=== PATIENT | male | born 1995 | race Caucasian/White ===

== ENCOUNTER → 2016-09-09 | Outpatient (CLI) | payer OTHER ==
[~2016-09-09] VITALS: Ht 182.9 cm; Wt 75.7 kg
[~2016-09-09] MED LIST: LIDOCAINE 2% INJ 100 MG/5 ML SDV (FOR ANES.) As Ordered ONE; NS 1,000 ML IV SCH; PROPOFOL 200 MG/20 ML VIAL As Ordered ONE
--- NOTE | 2016-09-09 07:44 | ROOR ---
Patient Name: Juan Anderson Procedure Date: 09/09/2016 7:26 AM Date of : 1995 Age: 20 Room: [facility] Gender: Male Note Status: Finalized Procedure: Upper GI endoscopy + Biopsies Indications: Functional Dyspepsia, Indigestion, Heartburn, Abdominal bloating Providers: Vincent Selby MD Referring MD: TERI GENAO MD Requesting Provider: Medicines: Monitored Anesthesia Care Complications: No immediate complications. Procedure: Pre-Anesthesia Assessment: - The heart rate, respiratory rate, oxygen saturations, blood pressure, adequacy of pulmonary ventilation, and response to care were monitored throughout the procedure. The Endoscope was introduced through the mouth, and advanced to the second part of duodenum. The upper GI endoscopy was accomplished without difficulty. The patient tolerated the procedure well. Findings: The Z-line was regular and was found 40 cm from the incisors. Mucosal changes including longitudinal furrows were found in the entire esophagus. Biopsies were taken with a cold forceps for histology. No other significant abnormalities were identified in a careful examination of the stomach. Biopsies were taken with a cold forceps in the gastric antrum for Helicobacter pylori testing. The exam of the duodenum was otherwise normal. Impression: - Z-line regular, 40 cm from the incisors. - Esophageal mucosal changes suggestive of eosinophilic esophagitis. Biopsied. - Biopsies were taken with a cold forceps for Helicobacter pylori testing. - The examination was otherwise normal. Recommendation: - Patient has a contact number available for emergencies. The signs and symptoms of potential delayed complications were discussed with the patient. Return to normal activities tomorrow. Written discharge instructions were provided to the patient. - High fiber diet. - Discharge patient to home. - Continue present medications. - Await pathology results. - Telephone GI clinic for pathology results in 1 week. - Return to referring physician. - The findings and recommendations were discussed with the patient's family. Vincent Selby MD Vincent Selby MD 09/09/2016 7:43:42 AM This report has been signed electronically. Number of Addenda: 0 Note Initiated On: 09/09/2016 7:26 AM Estimated Blood Loss: Estimated blood loss: none.
[2016-09-09 08:05] VITALS: BP 122/68
== END ==
LOC: M OPP 06:49
PROVIDERS: ATTEND Internal Medicine Gastroenterology
DX: K30 Functional dyspepsia (principal); R14.0 Abdominal distension (gaseous); K29.70 Gastritis, unspecified, without bleeding; K21.9 Gastro-esophageal reflux disease without esophagitis; Z88.0 Allergy status to penicillin

== ENCOUNTER 2016-09-17 18:43 | Emergency (ER) | payer OTHER ==
[2016-09-17] MEDS ORDERED: LIDOCAINE 2% MDV 20 ML VIAL As Ordered ONE (19:47)
[2016-09-17] MEDS ORDERED: CLINDAMYCIN 150 MG CAP As Ordered ONE (20:40)
--- NOTE | 2016-09-17 20:48 | EDDOCDS ---
Nurse's Notes [facility] Name: Juan Anderson Age: 20 yrs Sex: Male : 1995 Arrival Date: 09/17/2016 Time: 18:43 Bed PD Private MD: WISabine VAZQUEZ Diagnosis: Laceration without foreign body of left hand Presentation: 09/17 18:49 Presenting complaint: Patient states: cut hand while leather crafting just prior to [facility] arrival. Adult Sepsis Screening: The patient does not have new or worsening altered mentation. Patient's respiratory rate is less than 22. Systolic blood pressure is greater than 100. Patient has a qSOFA score of 0- Negative Sepsis Screen. Suicide/Homicide risk assessment- the patient denies having any suicidal and/or homicidal ideations and does not present with any other emotional, behavioral or mental health complaints. Status: The patient is an active duty hvac/r service technician. Transition of care: patient was not received from another setting of care. 18:49 Acuity: GIDEON Level 4 [facility] 18:49 Method Of Arrival: Walkin/Carried/Asstd [facility] Triage Assessment: 18:52 General: Appears in no apparent distress, comfortable, Behavior is appropriate for age, [facility] cooperative. Pain: Location: left hand Pain currently is 4 out of 10 on a pain scale. HIV screening NA for this visit active duty . Respiratory: Airway is patent Respiratory effort is even, unlabored, Respiratory pattern is regular, symmetrical. Derm: Skin is pink, warm & dry. Injury Description: Laceration sustained to left hand is clean, 0.5 to 2.5 cm long, not bleeding. Historical: - Allergies: PENICILLINS; - Home Meds: 1. dicyclomine 10 mg Oral cap 1 cap 3 times per day - PMHx: gastritis; - PSHx: hydrocelectomy; - Immunization history:: Last tetanus immunization: unknown. - Family history: Not pertinent. - Social history: Smoking status: Patient states was never smoker of tobacco. No barriers to communication noted. - : The pt / caregiver states he / she is not on anticoagulants. Home medication list is obtained from the patient. - Exposure Risk Screening:: None identified. Screenin:19 Screening information is obtained from the patient. Fall risk: No risks identified. [facility] Assistance ADL's: requires no assistance with activities of daily living. Abuse/DV Screen: The patient / caregiver reports he/she is: not in a situation that causes fear, pain or injury. Nutritional screening: No deficits noted. Advance Directives: There is no active DNR order. home support is adequate. Assessment: 20:19 General: Appears in no apparent distress, comfortable, Behavior is appropriate for age, cjh cooperative. Pain: Denies pain. Respiratory: Airway is patent Respiratory effort is even, unlabored, Respiratory pattern is regular, symmetrical. Derm: No deficits noted. DSD in tact over left hand where stitches have been placed, bacitracin applied per instructions, no redness, swelling, drainage, or tenderness noted, patient denies further needs. 20:44 General: reviewed discharge instructions with patient who denies further needs and [facility] declines offer of additional assistance. Vital Signs: 18:44 BP 147 / 66; Pulse 72; Resp 16; Temp 98.0(O); Pulse Ox 100% ; Weight 77.11 kg (R); lr2 Height 6 ft. 0 in. (182.88 cm) (R); Pain 3/10; 20:44 BP 130 / 70; Pulse 68; Resp 16; Temp 98.6; Pulse Ox 100% ; Pain 0/10; cjh 18:44 Body Mass Index 23.06 (77.11 kg, 182.88 cm) lr2 ED Course: 18:44 Patient visited by Yusra Mock. lr2 18:44 Patient moved to Waiting lr2 18:45 [facility], Sabine Spencer is Private Physician. lr2 18:45 Patient moved to Pre RCE lr2 18:49 Triage Initiated cj 19:26 [facility] ef[facility] 19:26 Dawood Chavarria MD is Attending Physician. ef1 19:26 Patient visited by Shani Pereira PA-C. ef1 19:26 Patient moved to Triage 1 rs6 19:26 Patient moved to Pre RCE rs6 19:27 Patient moved to PD2 / 27 ef1 20:07 Patient visited by Shani Pereira PA-C. ef1 20:19 The patient / caregiver is instructed regarding the plan of care and ED course. cj 20:19 No IV's were initiated during this patient's visit. No procedures done that require [facility] assistance. 20:25 [facility] Payment Agreement was scanned into [employer] and attached to record. ks16 20:35 Patient visited by Shani Pereira PA-C. ef1 20:38 [facility], Sabine Spencer is Referral Physician. ef1 Administered Medications: 20:19 Drug: Bacitracin Ointment 500 unit/g 1 applic Route: Topical; Site: affected area; [facility] 20:22 Drug: Lidocaine 10 ml [lidocaine 20 mg/mL (2 %) injection solution (10 mL)] {Note: [facility] medication obtained for provider to administer.} Route: Infiltration; 20:44 Drug: Clindamycin 300 mg [clindamycin 150 mg capsule (2 caps)] Route: PO; [facility] 20:44 Follow up: Response: Pt left department before re-evaluation is appropriate [facility] Order Results: There are currently no results for this order. Outcome: 20:19 No special radiology studies were completed. [facility] 20:38 Discharge ordered by Provider. [facility] 20:44 Discharge Assessment: Patient awake, alert and oriented x 3. No cognitive and/or [facility] functional deficits noted. Patient verbalized understanding of disposition instructions. patient administered narcotics - no. The following High Risk Discharge criteria are identified: None. Discharged to home ambulatory. Condition: good Condition: stable Condition: improved. Discharge instructions given to patient, Instructed on discharge instructions, follow up and referral plans. medication usage, wound care. Property :Personal belongings accompany Pt. 20:46 Patient left the ED. [facility] Signatures: Shani Pereira PA-C PA-C ef1 Morenita Castellano RN RN [facility] Andressa Hicks, NATURAL HISTORY COLLECTIONS CURATOR NATURAL HISTORY COLLECTIONS CURATOR rs6 Dorita Richards, Reg Reg ks16 Yusra Mock2 MTDD
--- NOTE | 2016-09-17 20:48 | EDDOCDS ---
Physician Documentation [facility] Name: Juan Anderson Age: 20 yrs Sex: Male : 1995 Arrival Date: 09/17/2016 Time: 18:43 Bed PD Private MD: COSabine VAZQUEZ Disposition: 09/17/16 20:38 Discharged to Home/Self Care. Impression: Laceration without foreign body of left hand. - Condition is Stable. - Discharge Instructions: Laceration Care, Adult, [id number]-Wept. - Prescriptions for Clindamycin HCl 300 mg Oral Capsule - take 1 capsule by ORAL route every 6 hours; 40 capsule. Ibuprofen 800 mg Oral Tablet - take 1 tablet by ORAL route every 8 hours As needed take with food; 30 tablet. - Medication Reconciliation, Local Pharmacy Hours form. - Follow up: Sabine Spencer [facility]; When: 1 - 2 days; Reason: Recheck today's complaints, Continuance of care. Follow up: Emergency Department; Reason: Worsening of conditions. - Problem is new. - Symptoms have improved. Historical: - Allergies: PENICILLINS; - Home Meds: 1. dicyclomine 10 mg Oral cap 1 cap 3 times per day - PMHx: gastritis; - PSHx: hydrocelectomy; - Immunization history:: Last tetanus immunization: unknown. - Family history: Not pertinent. - Social history: Smoking status: Patient states was never smoker of tobacco. No barriers to communication noted. - : The pt / caregiver states he / she is not on anticoagulants. Home medication list is obtained from the patient. - Exposure Risk Screening:: None identified. Vital Signs: 09/17 18:44 BP 147 / 66; Pulse 72; Resp 16; Temp 98.0(O); Pulse Ox 100% ; Weight 77.11 kg / 170 lbs lr2 (R); Height 6 ft. 0 in. (182.88 cm) (R); Pain 3/10; 20:44 BP 130 / 70; Pulse 68; Resp 16; Temp 98.6; Pulse Ox 100% ; Pain 0/10; cjh 18:44 Body Mass Index 23.06 (77.11 kg, 182.88 cm) lr2 Procedures: 20:09 Wound care to laceration located on left hand was cleaned with Hibiclens, irrigated ef1 with normal saline, Patient tolerated well. 20:09 Laceration repair:. ef1 Laceration: 20:09 Wound Repair of 1cm ( 0.4in ) full thickness laceration to left hand. Distal ef1 neuro/vascular/tendon intact. Anesthesia: Local anesthetic administered with 6 mls of 2% lidocaine. Wound prep: Wound irrigation with saline by provider. Skin closed with 5 x 5-0 Nylon using Simple interrupted sutures. Dressed with Bacitracin, 4x4's. Patient tolerated well. MDM: 19:33 Lidocaine 20 mg/mL (2 %) 10 ml Infiltration once; to bedside ordered. ef1 19:33 Wound Care ordered. ef1 20:11 Bacitracin Ointment 500 unit/g 1 applic Topical in affected area once ordered. ef1 20:11 Dressing ordered. ef1 20:24 Financial registration complete. ks16 20:25 [facility] Payment Agreement was scanned into [employer] and attached to record. ks16 20:39 Clindamycin 300 mg PO once ordered. ef1 Administered Medications: 20:19 Drug: Bacitracin Ointment 500 unit/g 1 applic Route: Topical; Site: affected area; [facility] 20:22 Drug: Lidocaine 10 ml [lidocaine 20 mg/mL (2 %) injection solution (10 mL)] {Note: [facility] medication obtained for provider to administer.} Route: Infiltration; 20:44 Drug: Clindamycin 300 mg [clindamycin 150 mg capsule (2 caps)] Route: PO; [facility] 20:44 Follow up: Response: Pt left department before re-evaluation is appropriate [facility] Signatures: Shani Pereira PA-C PA-C ef1 Morenita Castellano RN RN [facility] Dorita Richards, Reg Reg ks16 The chart was reviewed and I authenticate all verbal orders and agree with the evaluation and treatment provided.Attachments: 20:25 [facility] Payment Agreement ks16 MTDD
--- NOTE | 2016-09-19 21:48 | EDDOCDS ---
Physician Documentation [facility] Name: Juan Anderson Age: 20 yrs Sex: Male : 1995 Arrival Date: 09/17/2016 Time: 18:43 Bed PD Private MD: SDSabine VAZQUEZ Disposition: 09/17/16 20:38 Discharged to Home/Self Care. Impression: Laceration without foreign body of left hand. - Condition is Stable. - Discharge Instructions: Laceration Care, Adult, Yaaw-wz-Bcud. - Prescriptions for Clindamycin HCl 300 mg Oral Capsule - take 1 capsule by ORAL route every 6 hours; 40 capsule. Ibuprofen 800 mg Oral Tablet - take 1 tablet by ORAL route every 8 hours As needed take with food; 30 tablet. - Medication Reconciliation, Local Pharmacy Hours form. - Follow up: Sabine Spencer [facility]; When: 1 - 2 days; Reason: Recheck today's complaints, Continuance of care. Follow up: Emergency Department; Reason: Worsening of conditions. - Problem is new. - Symptoms have improved. Historical: - Allergies: PENICILLINS; - Home Meds: 1. dicyclomine 10 mg Oral cap 1 cap 3 times per day - PMHx: gastritis; - PSHx: hydrocelectomy; - Immunization history:: Last tetanus immunization: unknown. - Family history: Not pertinent. - Social history: Smoking status: Patient states was never smoker of tobacco. No barriers to communication noted. - : The pt / caregiver states he / she is not on anticoagulants. Home medication list is obtained from the patient. - Exposure Risk Screening:: None identified. Vital Signs: 09/17 18:44 BP 147 / 66; Pulse 72; Resp 16; Temp 98.0(O); Pulse Ox 100% ; Weight 77.11 kg / 170 lbs lr2 (R); Height 6 ft. 0 in. (182.88 cm) (R); Pain 3/10; 20:44 BP 130 / 70; Pulse 68; Resp 16; Temp 98.6; Pulse Ox 100% ; Pain 0/10; cjh 18:44 Body Mass Index 23.06 (77.11 kg, 182.88 cm) lr2 Procedures: 20:09 Wound care to laceration located on left hand was cleaned with Hibiclens, irrigated ef1 with normal saline, Patient tolerated well. 20:09 Laceration repair:. ef1 Laceration: 20:09 Wound Repair of 1cm ( 0.4in ) full thickness laceration to left hand. Distal ef1 neuro/vascular/tendon intact. Anesthesia: Local anesthetic administered with 6 mls of 2% lidocaine. Wound prep: Wound irrigation with saline by provider. Skin closed with 5 x 5-0 Nylon using Simple interrupted sutures. Dressed with Bacitracin, 4x4's. Patient tolerated well. MDM: 19:33 Lidocaine 20 mg/mL (2 %) 10 ml Infiltration once; to bedside ordered. ef1 19:33 Wound Care ordered. ef1 20:11 Bacitracin Ointment 500 unit/g 1 applic Topical in affected area once ordered. ef1 20:11 Dressing ordered. 1 20:24 Financial registration complete. [facility] : [facility] Payment Agreement was scanned into [employer] and attached to record. [facility] 20:39 Clindamycin 300 mg PO once ordered. [facility] 09/18 17:53 T-Sheet-- Draft Copy was scanned into [employer] and attached to record. klr Administered Medications: 09/17 20:19 Drug: Bacitracin Ointment 500 unit/g 1 applic Route: Topical; Site: affected area; [facility] 20:22 Drug: Lidocaine 10 ml [lidocaine 20 mg/mL (2 %) injection solution (10 mL)] {Note: [facility] medication obtained for provider to administer.} Route: Infiltration; 20:44 Drug: Clindamycin 300 mg [clindamycin 150 mg capsule (2 caps)] Route: PO; [facility] 20:44 Follow up: Response: Pt left department before re-evaluation is appropriate [facility] Signatures: Shani Pereira, PAZechariahC PAZechariahC ef1 Morenita Castellano RN RN [facility] Dorita Richards, Reg Reg ks16 Leonila Arellano klr The chart was reviewed and I authenticate all verbal orders and agree with the evaluation and treatment provided.Attachments: 20:25 [facility] Payment Agreement [facility] 09/18 17:53 T-Sheet-- Draft Copy klr Chart Complete MTDD
--- NOTE | 2016-09-19 21:48 | EDDOCDS ---
Nurse's Notes [facility] Name: Juan Anderson Age: 20 yrs Sex: Male : 1995 Arrival Date: 09/17/2016 Time: 18:43 Bed PD Private MD: ORSabine VAZQUEZ Diagnosis: Laceration without foreign body of left hand Presentation: 09/17 18:49 Presenting complaint: Patient states: cut hand while leather crafting just prior to [facility] arrival. Adult Sepsis Screening: The patient does not have new or worsening altered mentation. Patient's respiratory rate is less than 22. Systolic blood pressure is greater than 100. Patient has a qSOFA score of 0- Negative Sepsis Screen. Suicide/Homicide risk assessment- the patient denies having any suicidal and/or homicidal ideations and does not present with any other emotional, behavioral or mental health complaints. Status: The patient is an active duty dietary services director. Transition of care: patient was not received from another setting of care. 18:49 Acuity: GIDEON Level 4 [facility] 18:49 Method Of Arrival: Walkin/Carried/Asstd [facility] Triage Assessment: 18:52 General: Appears in no apparent distress, comfortable, Behavior is appropriate for age, [facility] cooperative. Pain: Location: left hand Pain currently is 4 out of 10 on a pain scale. HIV screening NA for this visit active duty . Respiratory: Airway is patent Respiratory effort is even, unlabored, Respiratory pattern is regular, symmetrical. Derm: Skin is pink, warm & dry. Injury Description: Laceration sustained to left hand is clean, 0.5 to 2.5 cm long, not bleeding. Historical: - Allergies: PENICILLINS; - Home Meds: 1. dicyclomine 10 mg Oral cap 1 cap 3 times per day - PMHx: gastritis; - PSHx: hydrocelectomy; - Immunization history:: Last tetanus immunization: unknown. - Family history: Not pertinent. - Social history: Smoking status: Patient states was never smoker of tobacco. No barriers to communication noted. - : The pt / caregiver states he / she is not on anticoagulants. Home medication list is obtained from the patient. - Exposure Risk Screening:: None identified. Screenin:19 Screening information is obtained from the patient. Fall risk: No risks identified. [facility] Assistance ADL's: requires no assistance with activities of daily living. Abuse/DV Screen: The patient / caregiver reports he/she is: not in a situation that causes fear, pain or injury. Nutritional screening: No deficits noted. Advance Directives: There is no active DNR order. home support is adequate. Assessment: 20:19 General: Appears in no apparent distress, comfortable, Behavior is appropriate for age, cjh cooperative. Pain: Denies pain. Respiratory: Airway is patent Respiratory effort is even, unlabored, Respiratory pattern is regular, symmetrical. Derm: No deficits noted. DSD in tact over left hand where stitches have been placed, bacitracin applied per instructions, no redness, swelling, drainage, or tenderness noted, patient denies further needs. 20:44 General: reviewed discharge instructions with patient who denies further needs and [facility] declines offer of additional assistance. Vital Signs: 18:44 BP 147 / 66; Pulse 72; Resp 16; Temp 98.0(O); Pulse Ox 100% ; Weight 77.11 kg (R); lr2 Height 6 ft. 0 in. (182.88 cm) (R); Pain 3/10; 20:44 BP 130 / 70; Pulse 68; Resp 16; Temp 98.6; Pulse Ox 100% ; Pain 0/10; cjh 18:44 Body Mass Index 23.06 (77.11 kg, 182.88 cm) lr2 ED Course: 18:44 Patient visited by Yusra Mock. lr2 18:44 Patient moved to Waiting lr2 18:45 [facility], Sabine Spencer is Private Physician. lr2 18:45 Patient moved to Pre RCE lr2 18:49 Triage Initiated cj 19:26 [facility] Pe[facility] ef1 19:26 Dawood Chavarria MD is Attending Physician. ef1 19:26 Patient visited by Shani Pereira PA-C. ef1 19:26 Patient moved to Triage 1 rs6 19:26 Patient moved to Pre RCE rs6 19:27 Patient moved to PD2 / 27 ef1 20:07 Patient visited by Shani Pereira PA-C. ef1 20:19 The patient / caregiver is instructed regarding the plan of care and ED course. cj 20:19 No IV's were initiated during this patient's visit. No procedures done that require [facility] assistance. 20:25 [facility]CLUDES [facility] Payment Agreement was scanned into [employer] and attached to record. ks16 20:35 Patient visited by Shani Pereira PA-C. ef1 20:38 [facility], Sabine Spencer is Referral Physician. ef1 09/18 17:53 T-Sheet-- Draft Copy was scanned into [employer] and attached to record. klr Administered Medications: 09/17 20:19 Drug: Bacitracin Ointment 500 unit/g 1 applic Route: Topical; Site: affected area; [facility] 20:22 Drug: Lidocaine 10 ml [lidocaine 20 mg/mL (2 %) injection solution (10 mL)] {Note: [facility] medication obtained for provider to administer.} Route: Infiltration; 20:44 Drug: Clindamycin 300 mg [clindamycin 150 mg capsule (2 caps)] Route: PO; [facility] 20:44 Follow up: Response: Pt left department before re-evaluation is appropriate [facility] Order Results: There are currently no results for this order. Outcome: 20:19 No special radiology studies were completed. [facility] 20:38 Discharge ordered by Provider. ef1 20:44 Discharge Assessment: Patient awake, alert and oriented x 3. No cognitive and/or [facility] functional deficits noted. Patient verbalized understanding of disposition instructions. patient administered narcotics - no. The following High Risk Discharge criteria are identified: None. Discharged to home ambulatory. Condition: good Condition: stable Condition: improved. Discharge instructions given to patient, Instructed on discharge instructions, follow up and referral plans. medication usage, wound care. Property :Personal belongings accompany Pt. 20:46 Patient left the ED. [facility] Signatures: Shani Pereira PA-C PA-C ef1 Morenita Castellano,RN RN [facility] Andressa Hicks, PRINCIPAL ELECTRICAL ENGINEER PRINCIPAL ELECTRICAL ENGINEER rs6 Dorita Richards, Reg Reg ks16 Leonila Arellano Laura lr2 Chart Complete MTDD
--- NOTE | 2016-09-19 21:48 | EDDOCDS ---
Physician Documentation [facility] Name: Juan Anderson Age: 20 yrs Sex: Male : 1995 Arrival Date: 09/17/2016 Time: 18:43 Bed PD Private MD: VTSabine VAZQUEZ Disposition: 09/17/16 20:38 Discharged to Home/Self Care. Impression: Laceration without foreign body of left hand. - Condition is Stable. - Discharge Instructions: Laceration Care, Adult, [id number]. - Prescriptions for Clindamycin HCl 300 mg Oral Capsule - take 1 capsule by ORAL route every 6 hours; 40 capsule. Ibuprofen 800 mg Oral Tablet - take 1 tablet by ORAL route every 8 hours As needed take with food; 30 tablet. - Medication Reconciliation, Local Pharmacy Hours form. - Follow up: Sabine Spencer [facility]; When: 1 - 2 days; Reason: Recheck today's complaints, Continuance of care. Follow up: Emergency Department; Reason: Worsening of conditions. - Problem is new. - Symptoms have improved. Historical: - Allergies: PENICILLINS; - Home Meds: 1. dicyclomine 10 mg Oral cap 1 cap 3 times per day - PMHx: gastritis; - PSHx: hydrocelectomy; - Immunization history:: Last tetanus immunization: unknown. - Family history: Not pertinent. - Social history: Smoking status: Patient states was never smoker of tobacco. No barriers to communication noted. - : The pt / caregiver states he / she is not on anticoagulants. Home medication list is obtained from the patient. - Exposure Risk Screening:: None identified. Vital Signs: 09/17 18:44 BP 147 / 66; Pulse 72; Resp 16; Temp 98.0(O); Pulse Ox 100% ; Weight 77.11 kg / 170 lbs lr2 (R); Height 6 ft. 0 in. (182.88 cm) (R); Pain 3/10; 20:44 BP 130 / 70; Pulse 68; Resp 16; Temp 98.6; Pulse Ox 100% ; Pain 0/10; cjh 18:44 Body Mass Index 23.06 (77.11 kg, 182.88 cm) lr2 Procedures: 20:09 Wound care to laceration located on left hand was cleaned with Hibiclens, irrigated ef1 with normal saline, Patient tolerated well. 20:09 Laceration repair:. ef1 Laceration: 20:09 Wound Repair of 1cm ( 0.4in ) full thickness laceration to left hand. Distal ef1 neuro/vascular/tendon intact. Anesthesia: Local anesthetic administered with 6 mls of 2% lidocaine. Wound prep: Wound irrigation with saline by provider. Skin closed with 5 x 5-0 Nylon using Simple interrupted sutures. Dressed with Bacitracin, 4x4's. Patient tolerated well. MDM: 19:33 Lidocaine 20 mg/mL (2 %) 10 ml Infiltration once; to bedside ordered. ef1 19:33 Wound Care ordered. ef1 20:11 Bacitracin Ointment 500 unit/g 1 applic Topical in affected area once ordered. ef1 20:11 Dressing ordered. 1 20:24 Financial registration complete. [facility] : [facility] Payment Agreement was scanned into [employer] and attached to record. [facility] 20:39 Clindamycin 300 mg PO once ordered. [facility] 09/18 17:53 T-Sheet-- Draft Copy was scanned into [employer] and attached to record. klr Administered Medications: 09/17 20:19 Drug: Bacitracin Ointment 500 unit/g 1 applic Route: Topical; Site: affected area; [facility] 20:22 Drug: Lidocaine 10 ml [lidocaine 20 mg/mL (2 %) injection solution (10 mL)] {Note: [facility] medication obtained for provider to administer.} Route: Infiltration; 20:44 Drug: Clindamycin 300 mg [clindamycin 150 mg capsule (2 caps)] Route: PO; [facility] 20:44 Follow up: Response: Pt left department before re-evaluation is appropriate [facility] Signatures: Shani Pereira, PAZechariahC PAZechariahC ef1 Morenita Castellano RN RN [facility] Dorita Richards, Reg Reg [id number] Leonila Arellano klr The chart was reviewed and I authenticate all verbal orders and agree with the evaluation and treatment provided.Attachments: 20:25 [facility] Payment Agreement [facility] 09/18 17:53 T-Sheet-- Draft Copy klr Chart Complete MTDD
== END 2016-09-17 20:46 | disposition home or self-care (01) ==
LOC: M ED 18:43
DX: S61.412A Laceration without foreign body of left hand, initial encounter (principal); W45.8XXA Other foreign body or object entering through skin, initial encounter; Y92.019 Unspecified place in single-family (private) house as the place of occurrence of the external cause; Y93.89 Activity, other specified; Y99.8 Other external cause status; G89.11 Acute pain due to trauma; K29.70 Gastritis, unspecified, without bleeding; Z79.899 Other long term (current) drug therapy; Z88.0 Allergy status to penicillin

== ENCOUNTER 2016-10-16 08:41 | Emergency (ER) | payer OTHER ==
[~2016-10-16] VITALS: Ht 182.9 cm; Wt 77.1 kg
[2016-10-16 08:55] VITALS: BP 75/76
[2016-10-16] MEDS ORDERED: BENT10CA PO (08:57)
== END 2016-10-16 09:44 | disposition home or self-care (01) ==
LOC: M ED 09:21
DX: S01.511A Laceration without foreign body of lip, initial encounter (principal); W51.XXXA Accidental striking against or bumped into by another person, initial encounter; Y92.89 Other specified places as the place of occurrence of the external cause; Y93.69 Activity, other involving other sports and athletics played as a team or group; Y99.8 Other external cause status; Z88.0 Allergy status to penicillin; Z79.899 Other long term (current) drug therapy